=== PATIENT | female | born 1945 | race Caucasian/White ===

== ENCOUNTER 2022-04-27 13:39 | Outpatient (CLI) | payer MEDICARE, OTHER | END 2022-04-27 23:59 | disposition home or self-care (01) | LOC: RAD 13:39 | PROVIDERS: ATTEND Nurse Practitioner Family | DX: J38.01 Paralysis of vocal cords and larynx, unilateral (principal); R49.0 Dysphonia; R47.1 Dysarthria and anarthria; R13.12 Dysphagia, oropharyngeal phase | CPT/HCPCS: 74230 ==